=== PATIENT | female | born 1995 | race Hispanic/Latino ===

== ENCOUNTER 2019-05-28 22:01 | Emergency (ER) | payer OTHER ==
[2019-05-29 00:57] LABS: Absolute Lymphocytes (CBC) 2.3 K/uL (0.7-4.9); Basophils % 0.5 % (0-1.3); Hematocrit 33.4 % (36.0-45.0); Lymphocytes % 28.7 % (15.3-44.8); MPV 9.9 fL (7.6-11.3); RBC Red Blood Cell Count 4.08 M/uL (3.86-4.86)
[2019-05-29 01:30] LABS: BUN Blood Urea Nitrogen 11 mg/dL (7-18); Bicarbonate 26 mmol/L (21-32); Glucose Level 84 mg/dL (74-106); HCG, Quantitative 57938 mIU/mL (1-3); Potassium 3.6 mmol/L (3.5-5.1); Sodium Level 140 mmol/L (136-145)
--- NOTE | 2019-05-29 01:48 | ER ---
Nurse's Notes [facility] Name: Candace Mayfield Age: 23 yrs Sex: Female : 1995 Arrival Date: 05/28/2019 Time: 22:03 Bed 14 Private MD: Diagnosis: 8 weeks gestation of ;Threatened Presentation: 05/28 22:18 Presenting complaint: Patient states: "I am 9 week I have been bleeding all jd3 day.". Transition of care: patient was not received from another setting of care. Onset of symptoms was May 28, 2019. Risk Assessment: Do you want to hurt yourself or someone else? Patient reports no desire to harm self or others. Initial Sepsis Screen: Does the patient meet any 2 criteria? No. Patient's initial sepsis screen is negative. Does the patient have a suspected source of infection? No. Patient's initial sepsis screen is negative. Care prior to arrival: None. 22:18 Method Of Arrival: Ambulatory jd3 22:18 Acuity: SALINAS 3 jd3 BUCKRAM SEWER: 23:48 2, 1, Living 0, LMP 03/28/2019 kb Historical: - Allergies: 22:19 No Known Allergies; jd3 - Home Meds: 22:19 None [Active]; jd3 - PMHx: 22:19 None; jd3 - PSHx: 22:19 None; jd3 - Immunization history:: Adult Immunizations up to date. - Social history:: Smoking status: Patient/guardian denies using tobacco. - Ebola Screening: : Patient negative for fever greater than or equal to 101.5 degrees Fahrenheit, and additional compatible Ebola Virus Disease symptoms. Screenin:30 Abuse screen: Denies threats or abuse. Nutritional screening: No deficits noted. tr5 Tuberculosis screening: No symptoms or risk factors identified. Fall Risk None identified. Assessment: 22:30 General: Appears uncomfortable, Behavior is calm, cooperative. Pain: Denies pain. tr5 Neuro: Level of Consciousness is awake, alert, obeys commands, Oriented to person, place, time, Roving Weight Gauger are equal bilaterally Moves all extremities. Cardiovascular: Heart tones present Capillary refill < 3 seconds. Respiratory: Airway is patent Respiratory effort is even, unlabored, Respiratory pattern is regular, symmetrical, Breath sounds are clear bilaterally. GI: No signs and/or symptoms were reported involving the gastrointestinal system. : Urine is clear, Reports vaginal bleeding that is bright red. EENT: No signs and/or symptoms were reported regarding the EENT system. Derm: No signs and/or symptoms reported regarding the dermatologic system. Musculoskeletal: No signs and/or symptoms reported regarding the musculoskeletal system. 05/29 02:25 Reassessment: Patient appears in no apparent distress at this time. Patient and/or cc3 family updated on plan of care and expected duration. Pain level reassessed. Patient is alert, oriented x 3, equal unlabored respirations, skin warm/dry/pink. BORIS Colon discharged the patient home no prescription given. No IV cannula in situ. Patient left ER vitally stable and ambulatory with her family. No valuables left in the patient's room. Patient denies pain at this time. Patient states feeling better. Patient states symptoms have improved. Vital Signs: 05/28 22:19 BP 122 / 80; Pulse 62; Resp 17 S; Temp 98.5(O); Pulse Ox 100% on R/A; Weight 80.29 kg jd3 (R); Height 5 ft. 6 in. (167.64 cm) (R); Pain 0/10; 05/29 02:20 BP 125 / 78; Pulse 65; Resp 15 S; Pulse Ox 99% on R/A; Pain 0/10; cc3 05/28 22:19 Body Mass Index 28.57 (80.29 kg, 167.64 cm) jd3 ED Course: 05/28 22:03 Patient arrived in ED. cf2 22:04 [facility] kb 22:04 Reji Johansen MD is Attending Physician. kb 22:19 Triage completed. jd3 22:20 Arm band placed on. jd3 22:30 Bed in low position. Call light in reach. Side rails up X 1. tr5 22:44 Sebastian Mondragon, ERLIN is Primary Nurse. tr5 23:05 Ultrasound completed. Patient tolerated well. Notified DOCUMENT MANAGEMENT SPECIALIST/CARTER [place]. sg3 23:05 US Transvaginal Ob In Process Unspecified. EDMS 05/29 02:15 Report received from ERLIN Cortes. cc3 02:33 No provider procedures requiring assistance completed. Patient did not have IV access cc3 during this emergency room visit. Administered Medications: No medications were administered Outcome: 01:48 Discharge ordered by MD. frey 02:34 Discharged to home ambulatory, with family. cc3 02:34 Condition: stable 02:34 Discharge instructions given to patient, Instructed on discharge instructions, follow up and referral plans. Demonstrated understanding of instructions, follow-up care. 02:38 Patient left the ED. cc3 Signatures: Dispatcher [employer] EDNE Marissa Colon, BILLET CUTTER-C BILLET CUTTER-Nelson Flores, RN RN [email or web address] Niecy Hayward 3 Teresa Carrero cc3 Sebastian Mondragon RN RN tr5 Kimberly Roberts cf2
--- NOTE | 2019-05-29 01:49 | EDPHYS ---
Physician Documentation [facility] Name: Candace Mayfield Age: 23 yrs Sex: Female : 1995 Arrival Date: 05/28/2019 Time: 22:03 Bed 14 Private MD: ED Physician Reji Johansen HPI: 05/28 23:47 This 23 yrs old Female presents to ER via Ambulatory with complaints of kb Vaginal Bleeding, 9 WEEKS . 23:48 The patient presents to the emergency department with vaginal bleeding, described as kb spotting. The estimated gestational age is 9 weeks. course: care: private OB physician, in [facility]. Previous pregnancies: in previous pregnancies patient has had. Associated signs and symptoms: Pertinent positives: vaginal bleeding. The patient has not experienced similar symptoms in the past. The patient has been recently seen by a physician:. Pt reports she is 9 weeks and started bleeding today. Now just spotting. visit was yesterday and everything was ok. GROCERY MANAGER: 23:48 2, 1, Living 0, LMP 03/28/2019 kb Historical: - Allergies: 22:19 No Known Allergies; jd3 - Home Meds: 22:19 None [Active]; jd3 - PMHx: 22:19 None; jd3 - PSHx: 22:19 None; jd3 - Immunization history:: Adult Immunizations up to date. - Social history:: Smoking status: Patient/guardian denies using tobacco. - Ebola Screening: : Patient negative for fever greater than or equal to 101.5 degrees Fahrenheit, and additional compatible Ebola Virus Disease symptoms. ROS: 23:50 Constitutional: Negative for fever, chills, and weight loss, Cardiovascular: Negative kb for chest pain, palpitations, and edema, Respiratory: Negative for shortness of breath, cough, wheezing, and pleuritic chest pain, Abdomen/GI: Negative for abdominal pain, nausea, vomiting, diarrhea, and constipation, MS/Extremity: Negative for injury and deformity, Skin: Negative for injury, rash, and discoloration, Neuro: Negative for headache, weakness, numbness, tingling, and seizure. 23:50 : Positive for vaginal bleeding. Exam: 23:50 Constitutional: This is a well developed, well nourished patient who is awake, alert, kb and in no acute distress. Head/Face: Normocephalic, atraumatic. ENT: Nares patent. No nasal discharge, no septal abnormalities noted. Tympanic membranes are normal and external auditory canals are clear. Oropharynx with no redness, swelling, or masses, exudates, or evidence of obstruction, uvula midline. Mucous membranes moist. Neck: Trachea midline, no thyromegaly or masses palpated, and no cervical lymphadenopathy. Supple, full range of motion without nuchal rigidity, or vertebral point tenderness. No Meningismus. Chest/axilla: Normal chest wall appearance and motion. Nontender with no deformity. No lesions are appreciated. Cardiovascular: Regular rate and rhythm with a normal S1 and S2. No gallops, murmurs, or rubs. Normal PMI, no JVD. No pulse deficits. Respiratory: Lungs have equal breath sounds bilaterally, clear to auscultation and percussion. No rales, rhonchi or wheezes noted. No increased work of breathing, no retractions or nasal flaring. Abdomen/GI: Soft, non-tender, with normal bowel sounds. No distension or tympany. No guarding or rebound. No evidence of tenderness throughout. Skin: Warm, dry with normal turgor. Normal color with no rashes, no lesions, and no evidence of cellulitis. MS/ Extremity: Pulses equal, no cyanosis. Neurovascular intact. Full, normal range of motion. Neuro: Awake and alert, GCS 15, oriented to person, place, time, and situation. Cranial nerves II-XII grossly intact. Motor strength 5/5 in all extremities. Sensory grossly intact. Cerebellar exam normal. Normal gait. Vital Signs: 22:19 BP 122 / 80; Pulse 62; Resp 17 S; Temp 98.5(O); Pulse Ox 100% on R/A; Weight 80.29 kg jd3 (R); Height 5 ft. 6 in. (167.64 cm) (R); Pain 0/10; 05/29 02:20 BP 125 / 78; Pulse 65; Resp 15 S; Pulse Ox 99% on R/A; Pain 0/10; cc3 05/28 22:19 Body Mass Index 28.57 (80.29 kg, 167.64 cm) jd3 MDM: 05/28 22:21 Patient medically screened. kb 23:50 Data reviewed: vital signs, nurses notes. Data interpreted: Pulse oximetry: on room air kb is 100 %. Interpretation: normal. 05/29 01:48 Counseling: I had a detailed discussion with the patient and/or guardian regarding: the kb historical points, exam findings, and any diagnostic results supporting the discharge/admit diagnosis, lab results, radiology results, the need for outpatient follow up, an OB/Gyne specialist, to return to the emergency department if symptoms worsen or persist or if there are any questions or concerns that arise at home. 05/28 22:11 Order name: Quantitative Hcg; Complete Time: 01:47 kb 05/28 22:11 Order name: Abo/rh Typing; Complete Time: :47 kb 05/28 22:11 Order name: Basic Metabolic Panel; Complete Time: :47 kb 05/28 22:11 Order name: CBC with Diff; Complete Time: 01:04 kb 05/28 22:11 Order name: US Transvaginal Ob kb 05/28 22:11 Order name: IV Saline Lock; Complete Time: 23:27 kb 05/28 22:11 Order name: Labs collected and sent; Complete Time: 23:27 kb 05/28 22:11 Order name: NPO; Complete Time: 23:27 kb Administered Medications: No medications were administered Disposition: 05/29/19 01:48 Discharged to Home. Impression: 8 weeks gestation of , Threatened . - Condition is Stable. - Discharge Instructions: First Trimester of , [id number], Subchorionic Hematoma, Threatened Miscarriage, [id number]. - Medication Reconciliation Form, Thank You Letter, Antibiotic Education, Prescription Opioid Use form. - Follow up: Emergency Department; When: As needed; Reason: Worsening of condition. Follow up: Private Physician; When: 2 - 3 days; Reason: Recheck today's complaints, Continuance of care, Re-evaluation by your physician. Addendum: 05/30/2019 06:58 Co-signature as Attending Physician, Reji Johansen MD I agree with the assessment and c dowling plan of care. Signatures: Dispatcher [employer] Marissa Gill, BLINDSTITCH LAPEL PADDER-C NICOLETTE-Reji Keen MD MD cha Davies, Jonathon RN RN Teresa Mcnulty cc3 Corrections: (The following items were deleted from the chart) 05/29 02:38 01:48 05/29/2019 01:48 Discharged to Home. Impression: 8 weeks gestation of ; cc3 Threatened . Condition is Stable. Discharge Instructions: First Trimester of , [id number], Subchorionic Hematoma, Threatened Miscarriage, [id number]. Forms are Medication Reconciliation Form, Thank You Letter, Antibiotic Education, Prescription Opioid Use. Follow up: Emergency Department; When: As needed; Reason: Worsening of condition. Follow up: Private Physician; When: 2 - 3 days; Reason: Recheck today's complaints, Continuance of care, Re-evaluation by your physician. kb
[2019-05-29 03:14] VITALS: TEMP 98.5
[2019-05-29 03:15] VITALS: BP 125/78; O2SAT 99
--- NOTE | 2019-05-29 08:52 | RAD REPORT ---
EXAM DESCRIPTION: US - Transvaginal OB - 05/28/2019 11:05 pm CLINICAL HISTORY: Vaginal bleeding;Abd pain, COMPARISON: None. TECHNIQUE: Endovaginal sonography performed. FINDINGS: Preliminary findings were provided to the referring clinician at time of the study. Normal -sized uterus is present with no suspicious or significant myometrial finding. A single normal shaped intrauterine gestational sac seen. A 2 x 1 cm subchorionic hemorrhage is prese nt. Cervical canal appears closed. pole, yolk sac identified. Cardiac activity is 169-173 BPM. [place]-rump length corresponds to an 8 week 2 day age. Calculated KAELYN is 01[birth year]06[birth year]2020. Neither ovary was identifiable due to bowel. No adnexal mass. No blood or fluid in the cul de sac. IMPRESSION: Single 8 week 2 day IUP with normal heart rate. A 2 x 1 x 1 cm subchorionic hemorrhage is present adjacent to the gestational sac. Cervical canal is closed. Bowel obscures the ovaries. No adnexal mass is seen.
== END 2019-05-29 02:38 | disposition home or self-care (01) ==
LOC: ER 22:01
DX: O20.0 Threatened abortion (principal); Z3A.08 8 weeks gestation of pregnancy
CPT/HCPCS: 36415; 76817; 80048; 84702; 85025; 86900; 86901; 99283